=== PATIENT | female | born 1990 | race Caucasian/White ===

== ENCOUNTER 2016-09-10 23:01 | Emergency (ER) | payer OTHER ==
[2016-09-10 23:02] VITALS: BMI 23.6
[2016-09-10 23:17] VITALS: TEMP 98.4
[2016-09-10] MEDS ORDERED: Sodium Chloride 0.9% 1,000 ML IV STA (23:25)
--- NOTE | 2016-09-10 23:29 | ED PDOC ---
Arrival/HPI - General Chief Complaint: Female Genitourinary Time Seen by Provider: 09/10/16 23:08 Historian: Patient - History of Present Illness Narrative History of Present Illness (Text): 09/10/16 23:26 26yo female present with complaint of vaginal bleeding since 1800. states it started very mild and then became heavier with clots this night. States she changes her pads twice, but not soak through. 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 She denies abdominal pain, nausea, vomiting, urinary symptoms, dizziness, any other complaint. Past Medical History - Provider Review Nursing Documentation Reviewed: Yes - Musculoskeletal/Rheumatological Hx Falls: No - Psychiatric Hx Depression: No Hx Emotional Abuse: No Hx Physical Abuse: No Hx Substance Use: No - Anesthesia Hx Anesthesia: No Hx Anesthesia Reactions: No Hx Malignant Hyperthermia: No - Suicidal Assessment Feels Threatened In Home Enviroment: No Family/Social History - Physician Review Nursing Documentation Reviewed: Yes Family/Social History: Unknown Family HX Smoking Status: Never Smoked Hx Alcohol Use: No Hx Substance Use: No Hx Substance Use Treatment: No Allergies/Home Meds Allergies/Adverse Reactions: Allergies No Known Allergies Allergy (Verified 09/17/11 16:07) Home Medications: Home Meds Medication Instructions Recorded Confirmed No Known Home Med 09/17/11 09/11/16 Review of Systems - Physician Review All systems were reviewed & negative as marked: Yes - Review of Systems Constitutional: Normal Eyes: Normal ENT: Normal Respiratory: Normal Cardiovascular: Normal Gastrointestinal: Normal Genitourinary Female: Vaginal Bleeding Musculoskeletal: Normal Skin: Normal Neurological: Normal Endocrine: Normal Hemo/Lymphatic: Normal Psychiatric: Normal Physical Exam Vital Signs Reviewed: Yes Vital Signs Temp Pulse Resp BP Pulse Ox 09/11/16 01:10 75 18 132/81 99 09/10/16 23:02 98.4 F 81 17 126/83 100 Temperature: Afebrile Blood Pressure: Normal Pulse: Regular Respiratory Rate: Normal Appearance: Positive for: Well-Appearing, Non-Toxic, Comfortable Pain Distress: None Mental Status: Positive for: Alert and Oriented X 3 - Systems Exam Head: Present: Atraumatic, Normocephalic Pupils: Present: PERRL Extroacular Muscles: Present: EOMI Conjunctiva: Present: Normal Mouth: Present: Moist Mucous Membranes Neck: Present: Normal Range of Motion Respiratory/Chest: Present: Clear to Auscultation, Good Air Exchange. No: Respiratory Distress, Accessory Muscle Use Cardiovascular: Present: Regular Rate and Rhythm, Normal S1, S2. No: Murmurs Abdomen: Present: Normal Bowel Sounds. No: Tenderness, Distention, Peritoneal Signs Back: Present: Normal Inspection Upper Extremity: Present: Normal Inspection. No: Cyanosis, Edema Lower Extremity: Present: Normal Inspection. No: Edema Neurological: Present: GCS=15, CN II-XII Intact, Speech Normal Skin: Present: Warm, Dry, Normal Color. No: Rashes Psychiatric: Present: Alert, Oriented x 3, Normal Insight, Normal Concentration Medical Decision Making ED Course and Treatment: 09/11/16 01:01 IMPRESSION: 1. No intrauterine gestation. DDX: Early IUP, missed , ectopic . 2. Incidental/non-acute findings are described above. PT presented for stated history. While in ED she passed blood clot that looks like tissue. She however remain hemodynamically stable and in no distress. Lab was reviewed with beta quant of 365.02 noted Transvaginal US as noted above. Pt have appointment with her OB on Saturday. She was strongly advised to f/u with her OB for a repeat beta. Advised TRT ED for any new or worsening symptoms. - Lab Interpretations Lab Results: 09/10/16 23:45 09/10/16 23:45 Lab Results 09/10/16 23:55: Urine Color Yellow, Urine Appearance Sl cloudy, Urine pH 6.0, Ur Specific [place] 1.025, Urine Protein Negative, Urine Glucose (UA) Negative, Urine Ketones Negative, Urine Blood Large H, Urine Nitrate Negative, Urine Bilirubin Negative, Urine Urobilinogen 0.2, Ur Leukocyte Esterase Negative, Urine RBC 20 - 25, Urine WBC 0 - 2, Ur Epithelial Cells 0 - 2, Urine HCG, Qual Positive 09/10/16 23:45: Beta HCG, Quant 365.02 H 09/10/16 23:45: Sodium 138, Potassium 4.0, Chloride 106, Carbon Dioxide 25, Anion Gap 11, BUN 12, Creatinine 0.7, Est GFR ( Amer) > 60, Est GFR (Non- Af Amer) > 60, Random Glucose 84, Calcium 9.1, Total Bilirubin 0.2, AST 28, ALT 24, Alkaline Phosphatase 60, Total Protein 7.3, Albumin 4.0, Globulin 3.3, Albumin/Globulin Ratio 1.2 09/10/16 23:45: PT 11.4, INR 1.06, APTT 26.0 09/10/16 23:45: WBC 8.4, RBC 3.95, Hgb 11.2 L, Hct 33.6 L, MCV 85.1, MCH 28.4, MCHC 33.3, RDW 16.4 H, Plt Count 233, MPV 9.9, Gran % 72.1 H, Lymph % (Auto) 21.3 L, [place] % (Auto) 4.5, Eos % (Auto) 2.0, Baso % (Auto) 0.1, Gran # 6.04, Lymph # 1.8, [place] # 0.4, Eos # 0.2, Baso # 0.01 09/10/16 23:05: Blood Type B POSITIVE, Antibody Screen Negative, BBK History Checked No verified bt - RAD Interpretation Radiology Orders: 09/10/16 23:24 OB TRANSVAGINAL [US] Stat - Medication Orders Current Medication Orders: Discontinued Medications Sodium Chloride (Sodium Chloride 0.9%) 1,000 mls @ 999 mls/hr IV .Q1H1M STA Stop: 09/11/16 00:25 Last Admin: 09/11/16 00:24 Dose: 999 mls/hr Disposition/Present on Arrival - Present on Arrival Any Indicators Present on Arrival: No History of DVT/PE: No History of Uncontrolled Diabetes: No Urinary Catheter: No History of Decub. Ulcer: No History Surgical Site Infection Following: None - Disposition Have Diagnosis and Disposition been Completed?: Yes Diagnosis: Miscarriage Disposition: HOME/ ROUTINE Disposition Time: 01:50 Patient Plan: Discharge Condition: STABLE Discharge Instructions (ExitCare): Spontaneous Miscarriage (ED) Additional Instructions: Follow up with your OB within 48hrs Return to ED for any new or worsening symptoms Referrals: Brandon Bill MD [Staff Provider] - Follow up with primary
[2016-09-10 23:56] LABS: ADD MANUAL DIFF? NO
[2016-09-11 00:03] LABS: BASO # 0.01 K/mm3 (0.0-2.0); BASO % 0.1 % (0.0-3.0); EOS # 0.2 (0.0-0.7); GRAN # 6.04 (1.4-6.5); GRAN % 72.1 % (50.0-68.0); HEMATOCRIT 33.6 % (36.0-48.0); LYMPH # 1.8 (1.2-3.4); LYMPH % 21.3 % (22.0-35.0); MEAN CELL VOLUME 85.1 fL (80.0-105.0); MEAN CORPUSCULAR HEMOGLOBIN 28.4 pg (25.0-35.0); MEAN CORPUSCULAR HGB CONC 33.3 g/dl (31.0-37.0); MEAN PLATELET VOLUME 9.9 fl (7.0-11.0); MONO # 0.4 (0.1-0.6); MONO % 4.5 % (1.0-6.0); PLATELET COUNT 233 10^3/uL (120.0-450.0); RED CELL DISTRIBUTION WIDTH 16.4 % (11.5-14.5); WHITE BLOOD COUNT 8.4 10^3/ul (4.5-11.0)
[2016-09-11 00:13] LABS: INR 1.06 (0.93-1.08)
[2016-09-11 00:18] LABS: ALB/GLOB RATIO 1.2 (1.1-1.8); ALKALINE PHOSPHATASE 60 U/L (38-133); ALT/SGPT 24 U/L (7-56); AST/SGOT 28 U/L (15-39); BILIRUBIN,TOTAL 0.2 mg/dL (0.2-1.3); BLOOD UREA NITROGEN 12 mg/dL (7-21); CALCIUM 9.1 mg/dL (8.4-10.5); CARBON DIOXIDE 25 mmol/L (21-33); CHLORIDE 106 mmol/L (98-107); GFR AFRICAN-AMERICAN > 60; GLUCOSE,RANDOM 84 mg/dL (70-110); SODIUM 138 mmol/L (132-148); TOTAL PROTEIN 7.3 g/dL (5.8-8.3)
[2016-09-11 00:38] LABS: URINE BILIRUBIN NEGATIVE (NEGATIVE); URINE BLOOD LARGE (NEGATIVE); URINE GLUCOSE (UA) NEGATIVE (NEGATIVE); URINE KETONE NEGATIVE (NEGATIVE); URINE LEUKOCYTE ESTERASE NEGATIVE Leu/uL (NEGATIVE); URINE PROTEIN NEGATIVE mg/dL (<30 mg/dL); URINE UROBILINOGEN 0.2 E.U./dL (<1 E.U./dL)
[2016-09-11 00:47] LABS: URINE APPEARANCE SL CLOUDY (CLEAR); URINE COLOR YELLOW (YELLOW)
[2016-09-11 00:50] LABS: URINE WBC 0 - 2 /hpf (0-6)
[2016-09-11 00:51] LABS: URINE EPITHELIAL CELLS 0 - 2 /hpf (0-5)
[2016-09-11 00:52] LABS: URINE RBC 20 - 25 /hpf (0-2)
--- NOTE | 2016-09-11 00:57 | US ---
EXAM: US First Trimester, Transabdominal CLINICAL HISTORY: 26 years old, female; Signs and symptoms; Lmp or gestational age (in weeks): 07/18/2016; Other: Heavy bleeding with clots; ; Additional info: Vaginal bleeding / TECHNIQUE: Real-time transabdominal obstetrical ultrasound of the maternal pelvis and a first trimester with image documentation. COMPARISON: No relevant prior studies available. FINDINGS: Gestation: No intrauterine gestational sac. Uterus/cervix: Endometrium: 1.0 cm in thickness. Closed cervix. Ovaries: Normal ovaries. No adnexal masses. Free fluid: No significant free fluid. IMPRESSION: 1. No intrauterine gestation. DDX: Early IUP, missed , ectopic . 2. Incidental/non-acute findings are described above. EXAM: US , Transvaginal CLINICAL HISTORY: 26 years old, female; Signs and symptoms; Lmp or gestational age (in weeks): 07/18/2016; Other: Heavy bleeding with clots; ; Additional info: Vaginal bleeding / TECHNIQUE: Real-time transvaginal obstetrical ultrasound of the maternal pelvis and a first trimester with image documentation. Transvaginal imaging was used for better evaluation of the fetus and adnexa. COMPARISON: No relevant prior studies available. FINDINGS: Gestation: No intrauterine gestational sac. Uterus/cervix: Endometrium: 1.0 cm in thickness. Closed cervix. Ovaries: Normal ovaries. No adnexal masses. Free fluid: No significant free fluid.
[2016-09-11 01:11] VITALS: BP 132/81; PULSE 75; RESP 18; O2SAT 99
== END 2016-09-11 02:18 | disposition home or self-care (01) ==
LOC: ED 23:01
DX: O03.9 Complete or unspecified spontaneous abortion without complication (principal)
CPT/HCPCS: 76817; 80053; 81001; 84702; 84703; 85025; 85610; 85730; 86850; 86900; 96360; 99283; J7040

== ENCOUNTER 2017-04-21 13:59 | Inpatient (IN) | payer OTHER ==
[2017-04-21] MEDS ORDERED: Sodium Chloride 0.9% 1,000 ML IV STA (14:12)
[2017-04-21 14:49] LABS: BASO # 0.02 K/mm3 (0.0-2.0); BASO % 0.1 % (0.0-3.0); EOS # 0.1 (0.0-0.7); EOS % 0.8 % (1.5-5.0); GRAN # 11.08 (1.4-6.5); GRAN % 76.9 % (50.0-68.0); HEMOGLOBIN 11.6 g/dL (12.0-16.0); LYMPH # 2.7 (1.2-3.4); LYMPH % 18.4 % (22.0-35.0); MEAN CELL VOLUME 85.4 fl (80.0-105.0); MEAN CORPUSCULAR HEMOGLOBIN 27.2 pg (25.0-35.0); MEAN CORPUSCULAR HGB CONC 31.9 g/dl (31.0-37.0); MEAN PLATELET VOLUME 10.9 fl (7.0-11.0); MONO # 0.6 (0.1-0.6); MONO % 3.8 % (1.0-6.0); RBC 4.26 10^6/uL (3.5-6.1); RED CELL DISTRIBUTION WIDTH 16.2 % (11.5-14.5); WHITE BLOOD COUNT 14.4 10^3/ul (4.5-11.0)
[2017-04-21 15:02] LABS: ALBUMIN 4.5 g/dL (3.0-4.8); ALT/SGPT 20 U/L (7-56); AST/SGOT 19 U/L (14-36); BLOOD UREA NITROGEN 7 mg/dL (7-21); GFR AFRICAN-AMERICAN > 60; GFR NON-AFRICAN AMERICAN > 60; MAGNESIUM 1.5 mg/dL (1.7-2.2)
[2017-04-21 15:02] LABS: PH,URINE 7.5 (4.7-8.0); URINE BILIRUBIN NEGATIVE (NEGATIVE); URINE BLOOD NEGATIVE (NEGATIVE); URINE GLUCOSE (UA) NEGATIVE (NEGATIVE); URINE LEUKOCYTE ESTERASE NEGATIVE Leu/uL (NEGATIVE); URINE NITRATE NEGATIVE (NEGATIVE); URINE PROTEIN NEGATIVE mg/dL (<30 mg/dL); URINE UROBILINOGEN 0.2 E.U./dL (<1 E.U./dL)
[2017-04-21 15:03] LABS: URINE APPEARANCE CLEAR (CLEAR); URINE COLOR YELLOW (YELLOW)
[2017-04-21 15:04] LABS: INR 1.14 (0.93-1.08); PARTIAL THROMBOPLASTIN TIME 23.6 Seconds (25.1-36.5)
[2017-04-21 15:12] LABS: TROPONIN I < 0.01 ng/mL
[2017-04-21 15:14] LABS: ALB/GLOB RATIO 1.1 (1.1-1.8)
[2017-04-21] MEDS ORDERED: Magnesium Sulfate 2 GM in Sodium Chloride 0.9% 100 ML IVPB ONE (15:39)
[2017-04-21] MEDS ORDERED: Potassium Chloride 40 mEq/30 ml LIQ UD PO STA (15:40)
--- NOTE | 2017-04-21 17:45 | CT ---
PROCEDURE: CT HEAD WITHOUT CONTRAST. HISTORY: SYNCOPE COMPARISON: None available. TECHNIQUE: Axial computed tomography images were obtained through the head/brain without intravenous contrast. Radiation dose: Total exam DLP = mGy-cm. This CT exam was performed using one or more of the following dose reduction techniques: Automated exposure control, adjustment of the mA and/or kV according to patient size, and/or use of iterative reconstruction technique. FINDINGS: HEMORRHAGE: No intracranial hemorrhage. BRAIN: No mass effect or edema. No atrophy or chronic microvascular ischemic changes. VENTRICLES: Unremarkable. No hydrocephalus. CALVARIUM: Unremarkable. PARANASAL SINUSES: Unremarkable as visualized. No significant inflammatory changes. MASTOID AIR CELLS: Unremarkable as visualized. No inflammatory changes. OTHER FINDINGS: None. IMPRESSION: Normal CT of the Head.
--- NOTE | 2017-04-21 19:26 | ED PDOC ---
Arrival/HPI - General Chief Complaint: Palpitations Time Seen by Provider: 04/21/17 14:08 Historian: Patient - History of Present Illness Narrative History of Present Illness (Text): 26 y/o woman w/ sig PMhx presents s/p sudden onset palpitations then dizziness, inability to feel lower extremities /lower extremity weakness/ facial twisting , following this she drank water, and then syncopized in front of her neighbour , then in [facility] ambulance the lower extremity symptoms continued, pt then went on to exhibit carpopedal likle spasm in ED and syncopize in bed for seevral seconds , deenying any cadiopulmonary symptoms nor antecdent GI illness/fevers/chill/ drug use /headache nor back pain. 04/21/17 19:17 Time/Duration: 1 hour Symptom Onset: Sudden Symptom Course: Worsening Past Medical History - Provider Review Nursing Documentation Reviewed: Yes - Infectious Disease Hx of Infectious Diseases: None - Reproductive Menopause: No - Musculoskeletal/Rheumatological Hx Falls: No - Psychiatric Hx Depression: No Hx Emotional Abuse: No Hx Physical Abuse: No Hx Substance Use: No - Anesthesia Hx Anesthesia: No Hx Anesthesia Reactions: No Hx Malignant Hyperthermia: No - Suicidal Assessment Feels Threatened In Home Enviroment: No Family/Social History - Physician Review Nursing Documentation Reviewed: Yes Family/Social History: No Known Family HX Smoking Status: Never Smoked Hx Alcohol Use: No Hx Substance Use: No Hx Substance Use Treatment: No Allergies/Home Meds Allergies/Adverse Reactions: Allergies No Known Allergies Allergy (Verified 09/17/11 16:07) Home Medications: Home Meds Medication Instructions Recorded Confirmed Iron Pill 04/21/17 Review of Systems - Review of Systems Constitutional: Normal Eyes: Normal ENT: Normal Respiratory: Normal Cardiovascular: Normal Gastrointestinal: Normal Genitourinary Female: Normal Musculoskeletal: Normal Skin: Normal Neurological: Focal Weakness, Gait Changes Endocrine: Normal Hemo/Lymphatic: Normal Psychiatric: Normal Physical Exam Vital Signs Reviewed: Yes Vital Signs Temp Pulse Resp BP Pulse Ox 04/21/17 15:53 79 18 125/71 99 04/21/17 14:12 97.8 F 88 18 127/77 99 Temperature: Afebrile Blood Pressure: Normal Pulse: Regular Respiratory Rate: Normal Appearance: Positive for: Well-Appearing, Non-Toxic, Comfortable Pain Distress: None Mental Status: Positive for: Alert and Oriented X 3 Finger Stick Blood Glucose: 103 - Systems Exam Head: Present: Atraumatic, Normocephalic Pupils: Present: PERRL Extroacular Muscles: Present: EOMI Conjunctiva: Present: Normal Mouth: Present: Moist Mucous Membranes Neck: Present: Normal Range of Motion Respiratory/Chest: Present: Clear to Auscultation, Good Air Exchange. No: Respiratory Distress, Accessory Muscle Use Cardiovascular: Present: Regular Rate and Rhythm, Normal S1, S2. No: Murmurs Abdomen: Present: Normal Bowel Sounds. No: Tenderness, Distention, Peritoneal Signs Back: Present: Normal Inspection Upper Extremity: Present: Normal Inspection. No: Cyanosis, Edema Lower Extremity: Present: Normal Inspection. No: Edema Neurological: Present: GCS=15, CN II-XII Intact, Speech Normal, Motor Func Grossly Intact, Normal Sensory Function, Normal Cerebellar Funct, Norm Deep Tendon Reflexes, Memory Normal, Other (3/5 weakness in B/L lower extremites. ) Skin: Present: Warm, Dry, Normal Color. No: Rashes Psychiatric: Present: Alert, Oriented x 3, Normal Insight, Normal Concentration Medical Decision Making ED Course and Treatment: P.t not respond to electrolyte repletion. symptoms continuing to be admitted for further w/u MRI of spie is pending . 04/21/17 19:28 - Lab Interpretations Lab Results: 04/21/17 14:40 04/21/17 14:40 Lab Results 04/21/17 14:50: Urine Color Yellow, Urine Appearance Clear, Urine pH 7.5, Ur Specific [place] 1.015, Urine Protein Negative, Urine Glucose (UA) Negative, Urine Ketones Negative, Urine Blood Negative, Urine Nitrate Negative, Urine Bilirubin Negative, Urine Urobilinogen 0.2, Ur Leukocyte Esterase Negative 04/21/17 14:40: Sodium 141, Potassium 3.3 L, Chloride 105, Carbon Dioxide 21, Anion Gap 18, BUN 7, Creatinine 0.6 L, Est GFR ( Amer) > 60, Est GFR (Non -Af Amer) > 60, Random Glucose 87, Calcium 10.0, Magnesium 1.5 L, Total Bilirubin 0.4, AST 19, ALT 20, Alkaline Phosphatase 80, Lactate Dehydrogenase 421, Total Creatine Kinase 70, Troponin I < 0.01, Total Protein 8.4 H, Albumin 4.5, Globulin 4.0, Albumin/Globulin Ratio 1.1 04/21/17 14:40: PT 13.0 H, INR 1.14 H, APTT 23.6 L 04/21/17 14:40: WBC 14.4 H D, RBC 4.26, Hgb 11.6 L, Hct 36.4, MCV 85.4, MCH 27.2 , MCHC 31.9, RDW 16.2 H, Plt Count 399, MPV 10.9, Gran % 76.9 H, Lymph % (Auto) 18.4 L, [place] % (Auto) 3.8, Eos % (Auto) 0.8 L, Baso % (Auto) 0.1, Gran # 11.08 H , Lymph # 2.7, [place] # 0.6, Eos # 0.1, Baso # 0.02 04/21/17 11:50: Urine HCG, Qual Negative - RAD Interpretation Radiology Orders: 04/21/17 14:10 CHEST PORTABLE [RAD] Stat 04/21/17 17:15 HEAD W/O CONTRAST [CT] Stat - Medication Orders Current Medication Orders: Discontinued Medications Sodium Chloride (Sodium Chloride 0.9%) 1,000 mls @ 999 mls/hr IV .Q1H1M STA Stop: 04/21/17 15:12 Last Admin: 04/21/17 14:30 Dose: 999 mls/hr eMAR Start Stop Document 04/21/17 14:30 CITLALLI (Rec: 04/21/17 14:38 CITLALLI [id number]) Intravenous Solution Start Date 04/21/17 Start Time 14:30 End Date 04/21/17 End time 15:30 Total Infusion Time 60 Magnesium Sulfate 2 gm/ Sodium (Chloride) 104 mls @ 102 mls/hr IVPB ONCE ONE Stop: 04/21/17 16:40 Last Admin: 04/21/17 16:08 Dose: 102 mls/hr eMAR Start Stop Document 04/21/17 16:08 RG (Rec: 04/21/17 16:08 RG [id number]) Intravenous Solution Start Date 04/21/17 Start Time 16:08 Lorazepam (Ativan) 0.5 mg IVP ONCE ONE PRN Reason: Protocol Stop: 04/21/17 18:53 Potassium Chloride (Potassium Chloride Oral Soln) 40 meq PO STAT STA Stop: 04/21/17 15:41 Last Admin: 04/21/17 16:08 Dose: 40 meq Comments: Pt tolerated PO med well. Disposition/Present on Arrival - Present on Arrival Any Indicators Present on Arrival: No History of DVT/PE: No History of Uncontrolled Diabetes: No Urinary Catheter: No History of Decub. Ulcer: No History Surgical Site Infection Following: None - Disposition Have Diagnosis and Disposition been Completed?: Yes Diagnosis: Syncope, Weakness Disposition: HOSPITALIZED Disposition Time: 19:31 Patient Plan: Admission Condition: GUARDED Discharge Instructions (ExitCare): Syncope (ED), Weakness (ED)
[2017-04-21 22:30] VITALS: BMI 24.4
--- NOTE | 2017-04-21 22:55 | CT ---
EXAM: CT Chest With Intravenous Contrast CLINICAL HISTORY: 26 years old, female; Signs and symptoms; Other: Weakness; Additional info: R/O dissection TECHNIQUE: Axial computed tomography images of the chest with intravenous contrast during the arterial phase of enhancement. All CT scans at this facility use one or more dose reduction techniques, viz.: automated exposure control; ma/kV adjustment per patient size (including targeted exams where dose is matched to indication; i.e. head); or iterative reconstruction technique. Coronal and sagittal reformatted images were created and reviewed. CONTRAST: 137 mL of OMNI 350 administered intravenously. COMPARISON: No relevant prior studies available. FINDINGS: Limitations: Motion artifact - mild. Pulmonary arteries: No pulmonary embolism. Aorta: No aortic dissection. No aneurysm. Lungs: No consolidation. Pleural space: No significant effusion. No pneumothorax. Heart: No cardiomegaly. No significant pericardial effusion. Bones/joints: No acute fracture. Soft tissues: Unremarkable. Lymph nodes: No pathologically enlarged lymph nodes. IMPRESSION: 1. No aortic dissection. EXAM: CT Abdomen and Pelvis With Intravenous Contrast CLINICAL HISTORY: 26 years old, female; Signs and symptoms; Other: Weakness; Additional info: R/O dissection TECHNIQUE: Axial computed tomography images of the abdomen and pelvis with intravenous contrast during the arterial phase of enhancement. All CT scans at this facility use one or more dose reduction techniques, viz.: automated exposure control; ma/kV adjustment per patient size (including targeted exams where dose is matched to indication; i.e. head); or iterative reconstruction technique. Coronal and sagittal reformatted images were created and reviewed. CONTRAST: 137 mL of OMNI 350 administered intravenously. COMPARISON: No relevant prior studies available. FINDINGS: Limitations: Motion artifact - mild. VASCULATURE: Aorta: No aortic dissection. Celiac trunk and mesenteric arteries: Anatomic variant of celiac axis/SMA and branches. No occlusion or significant stenosis. Renal arteries: No occlusion or significant stenosis. Iliac arteries: No occlusion or significant stenosis. ABDOMEN: Liver: Possible fatty infiltration. Gallbladder and bile ducts: Unremarkable. No calcified stones. No ductal dilation. Pancreas: Unremarkable. No ductal dilation. No mass. Spleen: Unremarkable. No splenomegaly. Adrenals: Unremarkable. No mass. Kidneys and ureters: Unremarkable. No hydronephrosis. No solid mass. Stomach and bowel: Unremarkable. No obstruction. No mucosal thickening. Appendix: Normal caliber. No definite inflammation. PELVIS: Bladder: Unremarkable. No mass. Reproductive: 2.3 x 1.8 x 2.1 cm hypodense lesion within RIGHT ovary. ABDOMEN and PELVIS: Intraperitoneal space: Unremarkable. No significant fluid collection. No free air. Bones/joints: No acute fracture. No dislocation. Soft tissues: Unremarkable. Lymph nodes: No pathologically enlarged lymph nodes. IMPRESSION: 1. No aortic dissection. 2. Probable RIGHT ovarian cyst. Consider ultrasound. 3. Incidental/non-acute findings are described above.
[2017-04-22] MEDS ORDERED: Morphine 2 mg/ml ISec IVP PRN (00:03)
[2017-04-22] MEDS: Sodium Chloride 0.9% 1,000 ML IV SCH ×3 (00:43→16:46)
[2017-04-22 01:10] LABS: TROPONIN I < 0.01 ng/mL
[2017-04-22 01:31] LABS: BLOOD UREA NITROGEN 5 mg/dL (7-21); GFR AFRICAN-AMERICAN > 60; GFR NON-AFRICAN AMERICAN > 60; MAGNESIUM 2.1 mg/dL (1.7-2.2)
--- NOTE | 2017-04-22 06:57 | RAD ---
HISTORY: weakness COMPARISON: No prior. FINDINGS: LUNGS: No active pulmonary disease. PLEURA: No significant pleural effusion identified, no pneumothorax apparent. CARDIOVASCULAR: Normal. OSSEOUS STRUCTURES: No significant abnormalities. VISUALIZED UPPER ABDOMEN: Normal. OTHER FINDINGS: None. IMPRESSION: No active disease.
--- NOTE | 2017-04-22 09:10 | CARD ---
APPROVED REPORT EKG Measurement Heart [id number] <Conclusion> Normal sinus rhythm Normal ECG
--- NOTE | 2017-04-22 16:54 | CARD ---
APPROVED REPORT EKG Measurement Heart [id number] <Conclusion> Normal sinus rhythm Normal ECG
--- NOTE | 2017-04-22 20:19 | CARD ---
APPROVED REPORT EXAM: Two-dimensional and M-mode echocardiogram with Doppler and color Doppler. INDICATION Chest Pain Syncope 2D DIMENSIONS Left Atrium (2D)2.4 (1.6-4.0cm)IVSd1.0 (0.7-1.1cm) LVDd4.1 (3.9-5.9cm)PWd0.9 (0.7-1.1cm) LVDs2.7 (2.5-4.0cm)FS (%) 33.6 % LVEF (%)62.8 (>50%) M-Mode DIMENSIONS Aortic Root2.50 (2.2-3.7cm)Aortic Cusp Exc.1.60 (1.5-2.0cm) Aortic Valve AoV Peak Yxusdrxs823.0cm/[place] GR.5mmHg Mitral Valve MV E Xzgzfngk977.0cm/sMV A Pctgvyub17.0cm/sE/A ratio2.2 TDI E/Lateral E'0.0E/Medial E'0.0 Tricuspid Valve TR Peak Nydfcitv111tu/sRAP [id number] Peak Gr.11mmHg [id number] LEFT VENTRICLE The left ventricle is normal size. There is normal left ventricular wall thickness. The left ventricular function is normal. The left ventricular ejection fraction is within the normal range. There is normal LV segmental wall motion. The left ventricular diastolic function is normal. RIGHT VENTRICLE The right ventricle is normal size. There is normal right ventricular wall thickness. The right ventricular systolic function is normal. ATRIA The left atrium size is normal. The right atrium size is normal. AORTIC VALVE The aortic valve is normal in structure. No aortic regurgitation is present. There is no aortic valvular stenosis. MITRAL VALVE The mitral valve is normal in structure. There is no mitral valve regurgitation noted. There is no mitral valve stenosis. TRICUSPID VALVE The tricuspid valve is normal in structure. There is no tricuspid valve regurgitation noted. GREAT VESSELS The aortic root is normal in size. The IVC collapses <50% with inspiration. PERICARDIAL EFFUSION There is no pericardial effusion. <Conclusion> The left ventricle is normal size. There is normal left ventricular wall thickness. The left ventricular function is normal. The left ventricular ejection fraction is within the normal range. There is normal LV segmental wall motion. The left ventricular diastolic function is normal.
--- NOTE | 2017-04-22 22:11 | CP.PCM.HP ---
History of Present Illness - History of Present Illness History of Present Illness: cc: Passed out HPI: A 26 y/o woman w/ sig PMhx presents s/p sudden onset palpitations then dizziness , inability to feel lower extremities /lower extremity weakness/ facial twisting following this she drank water, and then syncopized in front of her neighbour, then in [facility] ambulance the lower extremity symptoms continued, pt then went on to exhibit carpopedal likle spasm in ED and syncopize in bed for seevral seconds, denying any Cardiopulmonary symptoms nor antecdent GI illness/ fevers/chill/drug use /headache nor back pain. Present on Admission - Present on Admission Any Indicators Present on Admission: No Review of Systems - Review of Systems All systems: reviewed and no additional remarkable complaints except Past Patient History - Infectious Disease Hx of Infectious Diseases: None - Past Medical History & Family History Past Medical History?: No Pertinent Family History: Breast Cancer- Grand parents NO sudden in the family - Past Social History Smoking Status: Former Smoker Alcohol: None Drugs: Denies - CARDIAC Hx Cardiac Disorders: No - PULMONARY Hx Respiratory Disorders: No - NEUROLOGICAL Hx Dizziness: Yes - MUSCULOSKELETAL/RHEUMATOLOGICAL Hx Falls: No - PSYCHIATRIC Hx Depression: No Hx Emotional Abuse: No Hx Physical Abuse: No Hx Substance Use: No - SURGICAL HISTORY Hx Surgeries: No - ANESTHESIA Hx Anesthesia: No Hx Anesthesia Reactions: No Hx Malignant Hyperthermia: No Meds Allergies/Adverse Reactions: Allergies Allergy/AdvReac Type Severity Reaction Status Date / Time No Known Allergies Allergy Verified 09/17/11 16:07 Physical Exam - Constitutional Appears: Well, Cachectic - Head Exam Head Exam: ATRAUMATIC, NORMAL INSPECTION, NORMOCEPHALIC - Eye Exam Eye Exam: EOMI, Normal appearance, PERRL Pupil Exam: NORMAL ACCOMODATION, PERRL - ENT Exam ENT Exam: Mucous Membranes Moist, Normal Exam - Neck Exam Neck exam: Positive for: Normal Inspection - Respiratory Exam Respiratory Exam: Clear to Auscultation Bilateral, NORMAL BREATHING PATTERN - Cardiovascular Exam Cardiovascular Exam: Tachycardia, REGULAR RHYTHM, +S1, +S2 - GI/Abdominal Exam GI & Abdominal Exam: Normal Bowel Sounds, Soft. absent: Tenderness - Extremities Exam Extremities exam: Positive for: full ROM, normal capillary refill, normal inspection - Back Exam Back exam: NORMAL INSPECTION - Neurological Exam Neurological exam: Alert, CN II-XII Intact, Normal Gait, Oriented x3, Reflexes Normal - Psychiatric Exam Psychiatric exam: Normal Affect, Normal Mood - Skin Skin Exam: Dry, Intact, Normal Color, Warm Results - Vital Signs Recent Vital Signs: Last Vital Signs Temp 98.1 F 04/22/17 14:05 Pulse 94 H 04/22/17 14:05 Resp 16 04/22/17 14:05 BP 128/68 04/22/17 14:05 Pulse Ox 99 04/22/17 06:00 - Labs Result Diagrams: 04/23/17 06:30 04/23/17 06:30 Labs: Laboratory Results - last 24 hr 04/22/17 04/22/17 04/22/17 00:10 00:10 00:10 D-Dimer, Quantitative < 200 Sodium 139 Potassium 3.9 Chloride 108 H Carbon Dioxide 23 Anion Gap 12 BUN 5 L Creatinine 0.7 Est GFR ( Amer) > 60 Est GFR (Non-Af Amer) > 60 Random Glucose 125 H Calcium 9.0 Magnesium 2.1 Troponin I < 0.01 TSH 3rd Generation 1.20 - Imaging and Cardiology CT scan - head Status: Report reviewed by me Additional comment: No ACute finding Tele- Uneventful except Sinus rhythm Assessment & Plan (1) Syncope Assessment and Plan: with spasm Hypomagnesemia Hypokalemia Replenished Electrolytes in the ER Monitor BMP and mag TTE MRI Brain Cardiology and Neurology Consulted Neurocheck Q4hrs Ativan 2mg IV PRN seizure Status: Acute
--- NOTE | 2017-04-23 01:40 | CON ---
DATE: 04/22/2017 CONSULT SERVICE: Cardiology. REASON FOR THE CONSULTATION: Cardiac evaluation, the patient admitted with palpitation, twitching of the body and syncope. BRIEF CLINICAL HISTORY: This is a 26-year-old female with nonspecific except past medical history significant for anemia, last 3 years ago without any complication, who was in usual state of health, felt some palpitation, so drank some water and then started twitching all over hand, arm, leg and face then she passed out and the patient came to the Emergency Room. The patient says the second episode happened when the patient was in ER and after that spasm all over the both upper extremities, lower extremities and face and then patient passed out, second episode happened in the ER. The patient denies any dyspnea on exertion, chest pain or exertion or palpitation prior to that episode. PAST MEDICAL HISTORY: The only significant past medical history significant for anemia, not sure if it is secondary to heavy period or always been anemic. Last 3 years ago and without any complication. FAMILY HISTORY: Not significant. No history of coronary artery disease in father, mother, brother or sister, but remote in grandparents and uncles have some coronary artery disease. SOCIAL HISTORY: Denies smoking. Denies any history of alcohol abuse. CURRENT MEDICATIONS: The patient is taking at home iron pills. ALLERGIES: NO KNOWN DRUG ALLERGIES. REVIEW OF SYSTEMS: As per HPI. PHYSICAL EXAMINATION: VITAL SIGNS: As follows; temperature afebrile, heart rate 94, blood pressure 120/60. HEENT: PERRLA. Extraocular muscles intact. NECK: Supple. No carotid bruit or thyromegaly. CHEST: Clear to auscultation. HEART: S1 and S2 regular. ABDOMEN: Soft. EXTREMITIES: Clubbing and cyanosis negative. LABORATORY DATA: Blood workup as follows; WBC 14.4, hemoglobin 11.7, hematocrit 36.4, and platelet count 399. Chemistry shows sodium of 139, potassium 3.9, chloride 108, carbon dioxide 23, anion gap of 12, BUN 5, creatinine 0.7. Troponin 0.01 x2 negative. TSH is 1.2. EKG showed normal sinus, no acute ST-T changes noted and heart rate 96. IMPRESSION: Palpitation, syncope, twitching types of movement, rule out seizure disorder, rule out muscles spasm or abnormal movement muscles spasm movement disorder, rule out any structural heart disease. RECOMMENDATIONS: With lipid profile, TSH, hemoglobin A1c, echo to assess LV function, rule out any structural heart disease, neurological evaluation discussed with Dr. Fernandez. If the patient is neurologically stable, may consider regular stress test as outpatient. We will follow with you depending on further recommendation after the initial finding on the echo result. Thank you Dr. Alexx Fernandez for providing me the opportunity in taking care of the patient, Calli Shore. Bev Valdovinos MD
--- NOTE | 2017-04-23 07:01 | EEG ---
SUBJECTIVE: This is a 26-year-old female with past medical history not significant, came with palpitation and dizziness and the patient had syncopal episode. CONDITION OF THE RECORDING: Awake and drowsy. DESCRIPTION: Background activity of this tracing was composed of 8 to 9 cycles per second alpha rhythm. Small amount of beta activity was seen in the record. Theta activity 5 to 7 cycles per second was noted in the tracing. Drowsiness was composed of mixed beta and theta activity. Photic stimulation does not change the record. No paroxysmal activity was seen in the record. IMPRESSION: Normal awake and drowsy EEG. Be Ayers MD
[2017-04-23 07:12] LABS: BASO # 0.02 K/mm3 (0.0-2.0); BASO % 0.3 % (0.0-3.0); EOS # 0.2 (0.0-0.7); EOS % 2.2 % (1.5-5.0); GRAN # 5.31 (1.4-6.5); GRAN % 67.6 % (50.0-68.0); LYMPH # 1.9 (1.2-3.4); LYMPH % 23.6 % (22.0-35.0); MEAN CELL VOLUME 84.1 fl (80.0-105.0); MEAN CORPUSCULAR HEMOGLOBIN 26.5 pg (25.0-35.0); MEAN CORPUSCULAR HGB CONC 31.5 g/dl (31.0-37.0); MEAN PLATELET VOLUME 10.1 fl (7.0-11.0); MONO # 0.5 (0.1-0.6); MONO % 6.3 % (1.0-6.0); RBC 3.77 10^6/uL (3.5-6.1); RED CELL DISTRIBUTION WIDTH 16.3 % (11.5-14.5); WHITE BLOOD COUNT 7.8 10^3/ul (4.5-11.0)
[2017-04-23 07:20] LABS: ALB/GLOB RATIO 1.1 (1.1-1.8); GFR AFRICAN-AMERICAN > 60; GFR NON-AFRICAN AMERICAN > 60; MAGNESIUM 1.5 mg/dL (1.7-2.2)
[2017-04-23 07:29] LABS: LDL CHOLESTEROL 31 mg/dL (0-129)
[2017-04-23 07:47] LABS: ALBUMIN 3.4 g/dL (3.0-4.8); ALT/SGPT 16 U/L (7-56); AST/SGOT 17 U/L (14-36); BLOOD UREA NITROGEN 7 mg/dL (7-21); HDL CHOLESTEROL 41 mg/dL (29-60)
[2017-04-23 08:26] LABS: CALCIUM 8.9 mg/dL (8.4-10.5)
[2017-04-23] MEDS ORDERED: Potassium Chloride 20 mEq ER Tab PO ONE (09:43)
[2017-04-23] MEDS ORDERED: Magnesium Sulfate 2 GM in Sodium Chloride 0.9% 100 ML IVPB ONE (09:43)
--- NOTE | 2017-04-23 11:54 | PN ---
DATE: 04/23/2017 REASON FOR CONSULTATION AND FOLLOWUP: Cardiac evaluation, admitted with palpitation, twitching of the body and syncope. OBJECTIVE: GENERAL: Not in apparent distress. Denied any further episode of twitching noted. VITAL SIGNS: As follows, temperature afebrile, heart rate 77, blood pressure 95/54. HEENT: PERRLA. Extraocular muscles intact. NECK: Supple. No carotid bruits or thyromegaly. CHEST: Clear to auscultation. HEART: S1 and S2 regular. ABDOMEN: Soft. EXTREMITIES: Clubbing and cyanosis negative. LABORATORY DATA: Blood workup as follows; WBC 11.8, hemoglobin 10.0, hematocrit 31.7, platelet count 302. Chemistry shows sodium 139, potassium 3.3, chloride 108, carbon dioxide 23, anion gap of 13, BUN 7, creatinine 0.7, magnesium 1.5, phosphorus 3.3. Troponin 0.01. Echo shows essentially normal. No significant structural heart disease. Ejection fraction well preserved. Calculated ejection fraction 62%. IMPRESSION: A 26-year-old female with past medical history significant for anemia, admitted with one episode of palpitation, twitching of the body after that, and syncope, second episode happened in a year, no documented arrhythmia so far, normal echo; although patient is mild hypokalemic, hypomagnesemic. RECOMMENDATIONS: Adjust the supplement magnesium, potassium for neuro evaluation and followup. So far, patient remained stable from Cardiology point of view. For risk stratification, we can consider the stress test as an outpatient. So far, no evidence of arrhythmia noted while the patient is in telemetry, except one time the patient was little tachycardic. Orthostatic hypotension was also checked and found to be no evidence of orthostatic hypotension. Lying blood pressure was 93/59, sitting 106/64, standing 111/72. We will like to supplement magnesium and electrolyte. Thank you Dr. Fernandez for providing me the opportunity in taking care of the patient, Calli Shore. Bev Valdovinos MD
[2017-04-23] MEDS: Sodium Chloride 0.9% 1,000 ML IV SCH (14:26)
[2017-04-23] MEDS: Magnesium Oxide 400 mg Tab UD PO SCH ×2 (15:37→18:48)
--- NOTE | 2017-04-23 17:47 | MRI ---
PROCEDURE: MRI BRAIN WITHOUT CONTRAST HISTORY: syncope COMPARISON: Noncontrast head CT from 04/21/2017. TECHNIQUE: Multiplanar, multisequence MR images of the brain were obtained without intravenous contrast enhancement. FINDINGS: HEMORRHAGE: None DWI: No evidence of an acute or early subacute infarction. BRAIN PARENCHYMA: Smith-white matter differentiation is preserved. There is no mass, mass effect or abnormal extra-axial fluid collection. The midline sagittal structures are normal. VENTRICLES: The ventricles are normal in size, shape and configuration. There is a cavum septum pellucidum. CRANIUM: There is normal bone marrow signal pattern. ORBITS: Grossly unremarkable. PARANASAL SINUSES/MASTOIDS: There is mild mucosal thickening in the right maxillary sinus. The remaining included paranasal sinuses are predominantly clear. VASCULAR SYSTEM: There are normal signal voids in the larger intracranial arteries. OTHER FINDINGS: None. IMPRESSION: No acute intracranial abnormality.
--- NOTE | 2017-04-23 18:01 | CON ---
DATE: NEUROLOGY CONSULTATION REASON FOR CONSULTATION: Episode of passing out. HISTORY OF PRESENT ILLNESS: The patient is a 26-year-old female, who has been asked for evaluation of episode of passing out. The patient states she was at home. She felt that she has some strain sensation and twitching in her lower extremity followed by weakness in the lower extremity. She did not move her lower extremities after that she felt palpitation and dizzy and then she passed out. She was unconscious for brief period of time. She did not had any urinary incontinent's or tongue biting. She felt spasm in her hands prior to passing out. At the movement, she feels fine. REVIEW OF SYSTEMS: Denies any headache, dizziness, chest pain, shortness of breath, abdominal pain, constipation, diarrhea, dysuria, cough or sputum production. PAST MEDICAL HISTORY: None. MEDICATIONS: At home iron. ALLERGIES: NO KNOWN DRUG ALLERGIES. SOCIAL HISTORY: Denies smoking, use of alcohol or illicit drugs. FAMILY HISTORY: Reviewed and noncontributory to the case. PHYSICAL EXAMINATION GENERAL: The patient is young pleasant female, lying on the bed, in no acute distress. VITAL SIGNS: Her blood pressure is 95/54, heart rate is 76 per minute, breathing at the rate of 16 per minute, temperature is 98.3 degrees Fahrenheit. HEENT: Head is normocephalic and atraumatic. NECK: Supple. There are no carotid bruits. LUNGS: Clear. CVS: S1 and S2 audible. No murmurs. ABDOMEN: Soft and nontender. Bowel sounds are present. NEUROLOGY: Mental status: The patient is awake, alert, and oriented to time, place, and person. Speech is fluent. Naming and repetition is normal. Memory and cognition are intact. Cranial nerves examination; pupils are 3 mm bilaterally and reactive to light. Visual hernandez are full. Extraocular movements are intact. There is no facial asymmetry. Palate is upgoing bilaterally and tongue is midline. Motor examination; tone is normal. Power is 5/5 bilaterally in all extremities. Reflexes are +2 and symmetrical. Plantars are downgoing bilaterally. Cerebellar examination; [id number] shows no dysmetria. LABORATORY DATA: Reviewed; shows WBC of 7.8, hemoglobin of 10.0, hematocrit of 31.7, and platelets of 302. Her sodium is 139, potassium 3.7, chloride of 108, carbon dioxide 23, BUN of 7, creatinine of 0.6, and glucose of 92. She had a CT scan of the head done which is negative. She also had an electroencephalogram, which was normal. IMPRESSION: Status post syncope. Rule out cardiac arrhythmia versus questionable seizure. RECOMMENDATIONS: 1. The patient to have MRI of the brain without contrast. 2. The patient's initial EEG is normal. If the patient's workup is negative, we will consider obtaining prolonged ambulatory electroencephalogram as outpatient. 3. If the patient remains stable and has no further episode of passing out then she may be discharge with outpatient follow. Thank you for the opportunity to participate in the care of this patient. Raul Baez MD
--- NOTE | 2017-04-23 18:20 | CP.PCM.DIS ---
Provider - Provider Date of Admission: 04/21/17 19:31 Attending physician: Alexx Fernandez MD Time Spent in preparation of Discharge (in minutes): 35 Diagnosis - Discharge Diagnosis (1) Syncope Status: Acute (2) Weakness Status: Acute Comment: Hypomagnesemia. Hypokalemia Hospital Course - Lab Results Lab Results: Most Recent Lab Values WBC 7.8 10^3/ul (4.5-11.0) D 04/23/17 06:30 RBC 3.77 10^6/uL (3.5-6.1) 04/23/17 06:30 Hgb 10.0 g/dL (12.0-16.0) L 04/23/17 06:30 Hct 31.7 % (36.0-48.0) L 04/23/17 06:30 MCV 84.1 fl (80.0-105.0) 04/23/17 06:30 MCH 26.5 pg (25.0-35.0) 04/23/17 06:30 MCHC 31.5 g/dl (31.0-37.0) 04/23/17 06:30 RDW 16.3 % (11.5-14.5) H 04/23/17 06:30 Plt Count 302 10^3/uL (120.0-450.0) 04/23/17 06:30 MPV 10.1 fl (7.0-11.0) 04/23/17 06:30 Gran % 67.6 % (50.0-68.0) 04/23/17 06:30 Lymph % (Auto) 23.6 % (22.0-35.0) 04/23/17 06:30 [place] % (Auto) 6.3 % (1.0-6.0) H 04/23/17 06:30 Eos % (Auto) 2.2 % (1.5-5.0) 04/23/17 06:30 Baso % (Auto) 0.3 % (0.0-3.0) 04/23/17 06:30 Gran # 5.31 (1.4-6.5) 04/23/17 06:30 Lymph # 1.9 (1.2-3.4) 04/23/17 06:30 [place] # 0.5 (0.1-0.6) 04/23/17 06:30 Eos # 0.2 (0.0-0.7) 04/23/17 06:30 Baso # 0.02 K/mm3 (0.0-2.0) 04/23/17 06:30 PT 13.0 SECONDS (9.4-12.5) H 04/21/17 14:40 INR 1.14 (0.93-1.08) H 04/21/17 14:40 APTT 23.6 Seconds (25.1-36.5) L 04/21/17 14:40 D-Dimer, Quantitative < 200 ng/mL (0-243) 04/22/17 00:10 Sodium 139 mmol/L (132-148) 04/23/17 06:30 Potassium 3.7 mmol/L (3.6-5.0) 04/23/17 06:30 Chloride 108 mmol/L (98-107) H 04/23/17 06:30 Carbon Dioxide 23 mmol/L (21-33) 04/23/17 06:30 Anion Gap 13 (10-20) 04/23/17 06:30 BUN 7 mg/dL (7-21) 04/23/17 06:30 Creatinine 0.6 mg/dl (0.7-1.2) L 04/23/17 06:30 Est GFR ( Amer) > 60 04/23/17 06:30 Est GFR (Non-Af Amer) > 60 04/23/17 06:30 POC Glucose (mg/dL) 76 mg/dL (65-110) 04/21/17 18:49 Random Glucose 92 mg/dL (70-110) 04/23/17 06:30 Hemoglobin A1c 5.5 % (4.2-6.5) 04/23/17 06:30 Calcium 8.9 mg/dL (8.4-10.5) 04/23/17 06:30 Phosphorus 3.3 mg/dL (2.5-4.5) 04/23/17 06:30 Magnesium 1.5 mg/dL (1.7-2.2) L 04/23/17 06:30 Total Bilirubin 0.3 mg/dL (0.2-1.3) 04/23/17 06:30 AST 17 U/L (14-36) 04/23/17 06:30 ALT 16 U/L (7-56) 04/23/17 06:30 Alkaline Phosphatase 52 U/L (38-126) 04/23/17 06:30 Lactate Dehydrogenase 421 U/L (333-699) 04/21/17 14:40 Total Creatine Kinase 70 U/L (35-230) 04/21/17 14:40 Troponin I < 0.01 ng/mL 04/22/17 00:10 Total Protein 6.5 g/dL (5.8-8.3) 04/23/17 06:30 Albumin 3.4 g/dL (3.0-4.8) 04/23/17 06:30 Globulin 3.1 gm/dL 04/23/17 06:30 Albumin/Globulin Ratio 1.1 (1.1-1.8) 04/23/17 06:30 Triglycerides 30 mg/dL (35-160) L 04/23/17 06:30 Cholesterol 86 mg/dL (130-200) L 04/23/17 06:30 LDL Cholesterol Direct 31 mg/dL (0-129) 04/23/17 06:30 HDL Cholesterol 41 mg/dL (29-60) 04/23/17 06:30 TSH 3rd Generation 1.20 mIU/mL (0.46-4.68) 04/22/17 00:10 Urine Color Yellow (YELLOW) 04/21/17 14:50 Urine Appearance Clear (CLEAR) 04/21/17 14:50 Urine pH 7.5 (4.7-8.0) 04/21/17 14:50 Ur Specific [place] 1.015 (1.005-1.035) 04/21/17 14:50 Urine Protein Negative mg/dL (<30 mg/dL) 04/21/17 14:50 Urine Glucose (UA) Negative mg/dL (NEGATIVE) 04/21/17 14:50 Urine Ketones Negative mg/dL (NEGATIVE) 04/21/17 14:50 Urine Blood Negative (NEGATIVE) 04/21/17 14:50 Urine Nitrate Negative (NEGATIVE) 04/21/17 14:50 Urine Bilirubin Negative (NEGATIVE) 04/21/17 14:50 Urine Urobilinogen 0.2 E.U./dL (<1 E.U./dL) 01/07/18 14:50 Ur Leukocyte Esterase Negative Clarisse/uL (NEGATIVE) 04/21/17 14:50 Urine HCG, Qual Negative (NEGATIVE) 04/21/17 11:50 A Discharge Exam - Head Exam Head Exam: ATRAUMATIC, NORMAL INSPECTION, NORMOCEPHALIC - Eye Exam Eye Exam: Normal appearance, PERRL - ENT Exam ENT Exam: Mucous Membranes Dry - Respiratory Exam Respiratory Exam: Accessory Muscle Use, Clear to PA & Lateral, NORMAL BREATHING PATTERN - Cardiovascular Exam Cardiovascular Exam: Tachycardia, REGULAR RHYTHM, +S1, +S2 - Psychiatric Exam Psychiatric exam: Agitated, Depressed, Normal Mood Discharge Plan - Follow Up Plan Condition: GUARDED Disposition: HOME/ ROUTINE
[2017-04-24] MEDS: Sodium Chloride 0.9% 1,000 ML IV SCH (02:30)
[2017-04-24] MEDS: Magnesium Oxide 400 mg Tab UD PO SCH (09:10)
[2017-04-24 09:13] VITALS: BP 103/67; PULSE 68; RESP 18; TEMP 98.5; O2SAT 98
== END 2017-04-24 11:46 | disposition home or self-care (01) | DRG 141 ==
LOC: ED 13:59 → ERH 19:31 → 3RSO 23:34
PROVIDERS: ADMIT Internal Medicine; ATTEND Internal Medicine
DX: R55 Syncope and collapse (principal); E87.6 Hypokalemia; E83.42 Hypomagnesemia; R00.2 Palpitations; D64.9 Anemia, unspecified; R53.1 Weakness

== ENCOUNTER 2018-07-02 16:23 | Emergency (ER) | payer OTHER ==
[2018-07-02 16:31] VITALS: BMI 25.5
[2018-07-02] MEDS ORDERED: Sodium Chloride 0.9% 1,000 ML IV STA (16:50)
--- NOTE | 2018-07-02 16:51 | ED PDOC ---
Arrival/HPI - General Chief Complaint: Headache Time Seen by Provider: 07/02/18 16:43 Historian: Patient - History of Present Illness Narrative History of Present Illness (Text): 07/02/18 18:51 27 y/o 9 week by LMP female presents to the Emergency department c/o palpitations and headache x 2 days. Headache is located to the occipital region and described as throbbing. Palpitations are described as her heart "racing" i ntermittently. States she has been anxious lately because she is worried her blood pressure is high. States she does not drink much water throughout the day. Has not taken any medication for pain. Follows with an OB in [place] for her , last seen last week. Had an US confirming IUP per patient. Taking vitamins daily as prescribed. Denies fever, chills, abdominal pain, nausea, vomiting, neck pain, chest pain, SOB, cough, congestion, vision changes, dizziness, urinary symptoms, numbness, weakness, paresthesias, or any other associated symptoms. Past Medical History - Provider Review Nursing Documentation Reviewed: Yes - Infectious Disease Hx of Infectious Diseases: None - Cardiac Hx Cardiac Disorders: No - Pulmonary Hx Respiratory Disorders: No - Neurological Hx Dizziness: Yes - Musculoskeletal/Rheumatological Hx Falls: No - Psychiatric Hx Depression: No Hx Emotional Abuse: No Hx Physical Abuse: No Hx Substance Use: No - Anesthesia Hx Anesthesia: No Hx Anesthesia Reactions: No Hx Malignant Hyperthermia: No - Suicidal Assessment Feels Threatened In Home Enviroment: No Family/Social History - Physician Review Nursing Documentation Reviewed: Yes Family/Social History: No Known Family HX Smoking Status: Former Smoker Hx Alcohol Use: Yes (social) Frequency of alcohol use: Socially Hx Substance Use: No Hx Substance Use Treatment: No Allergies/Home Meds Allergies/Adverse Reactions: Allergies No Known Allergies Allergy (Verified 07/02/18 16:41) Home Medications: Home Meds Medication Instructions Recorded Confirmed No122/Iron/Folic Acid 1 tab PO DAILY 07/02/18 07/02/18 [ Multi Tablet] Review of Systems - Review of Systems Constitutional: Normal. absent: Fatigue, Fevers Eyes: Normal. absent: Vision Changes ENT: Normal. absent: Sore Throat, Sinus Congestion Respiratory: Normal. absent: SOB, Cough Cardiovascular: Palpitations. absent: Chest Pain Gastrointestinal: Normal. absent: Abdominal Pain, Nausea, Vomiting Genitourinary Female: Normal. absent: Dysuria, Frequency Musculoskeletal: Normal. absent: Arthralgias, Back Pain, Neck Pain Skin: Normal. absent: Rash Neurological: Headache Endocrine: Normal. absent: Diaphoresis Hemo/Lymphatic: Normal Psychiatric: Normal Physical Exam Vital Signs Reviewed: Yes Vital Signs Temp Pulse Resp BP Pulse Ox 07/02/18 16:31 98.4 F 96 H 18 113/76 100 Temperature: Afebrile Blood Pressure: Normal Pulse: Regular Respiratory Rate: Normal Appearance: Positive for: Well-Appearing, Non-Toxic, Comfortable Pain Distress: None Mental Status: Positive for: Alert and Oriented X 3 - Systems Exam Head: Present: Atraumatic, Normocephalic Pupils: Present: PERRL Extroacular Muscles: Present: EOMI Conjunctiva: Present: Normal Mouth: Present: Moist Mucous Membranes Neck: Present: Normal Range of Motion. No: Meningeal Signs Respiratory/Chest: Present: Clear to Auscultation, Good Air Exchange. No: Respiratory Distress, Accessory Muscle Use Cardiovascular: Present: Regular Rate and Rhythm, Normal S1, S2, Peripheal Pulses Present. No: Murmurs Abdomen: Present: Normal Bowel Sounds. No: Tenderness, Distention, Peritoneal Signs, Rebound, Guarding Back: Present: Normal Inspection. No: CVA Tenderness Upper Extremity: Present: Normal Inspection, Normal ROM, NORMAL PULSES, Neurovascularly Intact, Capillary Refill < 2s. No: Cyanosis, Edema, Temperature Abnormalties Lower Extremity: Present: Normal Inspection, NORMAL PULSES, Neurovascularly Intact, Capillary Refill < 2 s. No: Edema, Temperature Abnormalties Neurological: Present: GCS=15, CN II-XII Intact, Speech Normal, Motor Func Grossly Intact, Normal Sensory Function, Gait Normal Skin: Present: Warm, Dry, Normal Color. No: Rashes Lymphatic: No: Cervical Adenopathy Psychiatric: Present: Alert, Oriented x 3, Normal Insight, Normal Concentration, Normal Affect, Normal Mood Medical Decision Making ED Course and Treatment: Initial Plan: * CBC, CMP * TSH * UA, culture * POC preg * EKG * IVF EKG NSR at 77 07/02/18 18:44 Pt reports resolution of symptoms with fluids. Bloodwork reviewed, significant for anemia, pt with history of anemia TSH low with normal free T4. Pt given copies of test results and advised to followup with PMD and OB. Case discussed with ED attending Dr. Walker, who reviewed diagnostic testing results and recommends discharge home. Diagnostic testing results and plan of care discussed with patient. Strict instructions given regarding prescription use, importance of followup, and signs/symptoms to return to ER including fever, chills, abdominal pain, or any other new/worsening symptoms. Pt verbalized understanding of discussion. Patient is A&Ox3, ambulating with steady gait, with vital signs stable for discharge. - Lab Interpretations Lab Results: 07/02/18 17:53 07/02/18 17:53 Lab Results 07/02/18 17:53: Beta HCG, Quant [id number] H 07/02/18 17:53: Free T4 1.62 07/02/18 17:53: TSH 3rd Generation < 0.02 L 07/02/18 17:53: Sodium 136, Potassium 4.0, Chloride 103, Carbon Dioxide 21, Anion Gap 16, BUN 9, Creatinine 0.5 L, Est GFR ( Amer) > 60, Est GFR (Non-Af Amer) > 60, Random Glucose 79, Calcium 9.3, Magnesium 1.8, Total Bilirubin < 0.1 L, AST 16, ALT 18, Alkaline Phosphatase 71, Total Protein 7.3, Albumin 3.9, Globulin 3.4, Albumin/Globulin Ratio 1.2 07/02/18 17:53: WBC 11.6 H, RBC 3.86, Hgb 10.8 L, Hct 32.5 L, MCV 84.2, MCH 28.0, MCHC 33.2, RDW 16.6 H, Plt Count 207, MPV 10.1, Neut % (Auto) 81.3 H, Lymph % (Auto) 12.8 L, [place] % (Auto) 4.9, Eos % (Auto) 0.9 L, Baso % (Auto) 0.1, Lymph # (Auto) 1.5, [place] # (Auto) 0.6, Eos # (Auto) 0.1, Baso # (Auto) 0.01, Absolute Neuts (auto) 9.41 H 07/02/18 17:50: Urine Color Yellow, Urine Appearance Clear, Urine pH 6.5, Ur Specific [place] 1.015, Urine Protein Negative, Urine Glucose (UA) Negative, Urine Ketones Negative, Urine Blood Negative, Urine Nitrate Negative, Urine Bilirubin Negative, Urine Urobilinogen 0.2, Ur Leukocyte Esterase Negative I have reviewed the lab results: Yes - RAD Interpretation Mechanical Sound Technician: Radiologist - EKG Interpretation EKG Interpretation (Text): Rate 77; NSR; Normal Intervals; No STEMI or other signs of acute ischemia Interpreted by ED Physician: Yes Type: 12 lead EKG Disposition/Present on Arrival - Present on Arrival Any Indicators Present on Arrival: No History of DVT/PE: No History of Uncontrolled Diabetes: No Urinary Catheter: No History of Decub. Ulcer: No History Surgical Site Infection Following: None - Disposition Have Diagnosis and Disposition been Completed?: Yes Diagnosis: Headache, , Palpitations Disposition: HOME/ ROUTINE Disposition Time: 20:00 Condition: IMPROVED Discharge Instructions (ExitCare): Nutrition Before and During Additional Instructions: Increase fluids Followup with primary doctor for thyroid check Followup with OBGYN within 2 days Return to ER with any new/worsening symptoms Referrals: Cain Rich MD [Primary Care Provider] - Follow up with primary Forms: [facility] (Pashto), WORK NOTE
[2018-07-02 18:08] LABS: ALB/GLOB RATIO 1.2 (1.1-1.8); ALBUMIN 3.9 g/dL (3.0-4.8); ALT/SGPT 18 U/L (7-56); AST/SGOT 16 U/L (14-36); BASO # 0.01 K/mm3 (0.0-2.0); BASO % 0.1 % (0.0-3.0); BLOOD UREA NITROGEN 9 mg/dL (7-21); CALCIUM 9.3 mg/dL (8.4-10.5); EOS # 0.1 (0.0-0.7); EOS % 0.9 % (1.5-5.0); GFR NON-AFRICAN AMERICAN > 60; HEMOGLOBIN 10.8 g/dL (12.0-16.0); LYMPH # 1.5 (1.2-3.4); LYMPH % 12.8 % (22.0-35.0); MEAN CELL VOLUME 84.2 fl (80.0-105.0); MEAN CORPUSCULAR HGB CONC 33.2 g/dl (31.0-37.0); MEAN PLATELET VOLUME 10.1 fl (7.0-11.0); MONO # 0.6 (0.1-0.6); MONO % 4.9 % (1.0-6.0); RBC 3.86 10^6/uL (3.5-6.1); RED CELL DISTRIBUTION WIDTH 16.6 % (11.5-14.5); WHITE BLOOD COUNT 11.6 10^3/uL (4.5-11.0)
[2018-07-02 18:12] LABS: PH,URINE 6.5 (4.7-8.0); URINE BILIRUBIN NEGATIVE (NEGATIVE); URINE BLOOD NEGATIVE (NEGATIVE); URINE GLUCOSE (UA) NEGATIVE (NEGATIVE); URINE LEUKOCYTE ESTERASE NEGATIVE Leu/uL (NEGATIVE); URINE PROTEIN NEGATIVE mg/dL (<30 mg/dL); URINE UROBILINOGEN 0.2 E.U./dL (<1 E.U./dL)
[2018-07-02 18:14] LABS: URINE APPEARANCE CLEAR (CLEAR); URINE COLOR YELLOW (YELLOW)
[2018-07-02 20:56] VITALS: BP 110/72; PULSE 85; RESP 18; TEMP 98.2; O2SAT 99
--- NOTE | 2018-07-02 21:59 | CARD ---
APPROVED REPORT Date of service: 07/02/2018 EKG Measurement Heart [id number] <Conclusion> Normal sinus rhythm Possible Left atrial enlargement Borderline ECG
== END 2018-07-02 20:10 | disposition home or self-care (01) ==
LOC: ED 16:23
DX: O26.899 Other specified pregnancy related conditions, unspecified trimester (principal); R00.2 Palpitations; R51 Headache; Z3A.00 Weeks of gestation of pregnancy not specified
CPT/HCPCS: 80053; 81003; 81025; 83735; 84439; 84443; 84702; 85025; 93005; 96360; 99282; J7030